=== PATIENT | male | born 1970 ===

== ENCOUNTER 2020-06-15 13:23 | Emergency (ER) | payer OTHER ==
[~2020-06-15] VITALS: Ht 167.6 cm; Wt 86.2 kg
[2020-06-15] MEDS ORDERED: Norco 5-325 Ta1 EACH PO (14:15)
[2020-06-15] MEDS ORDERED: IBUP800 PO (14:15)
== END 2020-06-15 14:18 | disposition home or self-care (01) ==
LOC: ER 13:23
DX: K40.90 Unilateral inguinal hernia, without obstruction or gangrene, not specified as recurrent (principal)
CPT/HCPCS: 99282

== ENCOUNTER 2020-06-26 12:42 | Inpatient (IN) | payer OTHER ==
[~2020-06-26] VITALS: Ht 167.6 cm; Wt 81.8 kg
[~2020-06-26 12:42] MED LIST: IBUP800 PO; Norco 5-325 Ta1 EACH PO
[2020-06-26 13:51] LABS: BASOPHILS ABSOLUTE AUTO 0.02 K/mm3 (0.00-0.23); BASOPHILS PERCENT AUTO 0 % (0-2); EOSINOPHILS ABSOLUTE AUTO 0.11 K/mm3 (0.00-0.68); EOSINOPHILS PERCENT AUTO 2 % (0-6); Hematocrit 34.6 % (37.0-53.0); Hemoglobin 11.5 g/dL (13.5-17.5); IMMATURE GRAN PERCENT AUTO 0 % (0-1); LYMPHOCYTES PERCENT AUTO 24 % (21-46); MONOCYTES ABSOLUTE AUTO 0.72 K/mm3 (0.16-1.47); MONOCYTES PERCENT AUTO 10 % (4-13); Mean Corpuscular HGB 30.6 pg (26.0-34.0); Mean Corpuscular HGB Conc 33.2 g/dL (31.5-36.5); Mean Corpuscular Volume 92 fL (80-100); Mean Platelet Volume 11.2 fL (9.1-12.4); NEUTROPHILS ABSOLUTE AUTO 4.47 K/mm3 (1.96-9.15); NEUTROPHILS PERCENT AUTO 64 % (41-73); Platelet Count 179 K/mm3 (150-400); RDW Coefficient Variation 13.6 % (11.7-14.2); Red Blood Cell Count 3.76 M/mm3 (4.30-5.90); White Blood Cell Count 7.02 K/mm3 (4.00-11.30)
[2020-06-26 14:10] LABS: Alanine Aminotransfer (ALT/SGP 23 U/L (12-78); Albumin, Blood 2.4 g/dL (3.4-5.0); Albumin/Globulin Ratio 0.5 (0.8-1.8); Alk Phos 118 U/L (50-136); Anion Gap 6 mmol/L (6-16); Aspartate Aminotrans (AST/SGOT 21 U/L (12-37); Bilirubin, Total 0.7 mg/dL (0.1-1.0); Blood Urea Nitrogen 15 mg/dL (8-24); Bun/Creatinine Ratio 25.8 (12.0-20.0); CO2, Blood 28 mmol/L (21-32); CPK Creatine Kinase 81 U/L (39-308); Calcium, Blood 7.8 mg/dL (8.5-10.1); Chloride, Blood 106 mmol/L (98-108); Creatine Kinase MB 2.4 ng/mL (0.0-3.6); Creatinine, Blood 0.58 mg/dL (0.60-1.20); Glomerular Filtration Rate >60 (60-); Glucose, Blood 113 mg/dL (70-99); Potassium, Blood 3.2 mmol/L (3.5-5.5); Sodium, Blood 140 mmol/L (136-145); Total Protein, Blood 7.4 g/dL (6.4-8.2); Troponin I <0.015 ng/mL (0.000-0.040)
[2020-06-26] MEDS ORDERED: IBUP200 PO (19:55)
[2020-06-27 05:21] LABS: BASOPHILS ABSOLUTE AUTO 0.01 K/mm3 (0.00-0.23); BASOPHILS PERCENT AUTO 0 % (0-2); EOSINOPHILS ABSOLUTE AUTO 0.12 K/mm3 (0.00-0.68); EOSINOPHILS PERCENT AUTO 4 % (0-6); Hematocrit 34.2 % (37.0-53.0); Hemoglobin 11.3 g/dL (13.5-17.5); IMMATURE GRAN ABSOLUTE AUTO 0.01 K/mm3 (0.00-0.10); IMMATURE GRAN PERCENT AUTO 0 % (0-1); LYMPHOCYTES ABSOLUTE AUTO 1.17 K/mm3 (0.84-5.20); LYMPHOCYTES PERCENT AUTO 37 % (21-46); MONOCYTES ABSOLUTE AUTO 0.36 K/mm3 (0.16-1.47); MONOCYTES PERCENT AUTO 11 % (4-13); Mean Corpuscular HGB 30.6 pg (26.0-34.0); Mean Corpuscular Volume 93 fL (80-100); Mean Platelet Volume 11.4 fL (9.1-12.4); NEUTROPHILS ABSOLUTE AUTO 1.53 K/mm3 (1.96-9.15); NEUTROPHILS PERCENT AUTO 48 % (41-73); Platelet Count 162 K/mm3 (150-400); RDW Coefficient Variation 13.7 % (11.7-14.2); RDW Standard Deviation 46.7 fL (35.1-46.3); Red Blood Cell Count 3.69 M/mm3 (4.30-5.90)
--- NOTE | 2020-06-27 05:22 | NUR ---
SHIFT SUMMARY PT NEW ED ADMIT THIS EVENING. PT LETHARGIC SINCE ADMISSION. THERE IS SOME CONCERN FOR SUBSTANCE USE. PT HAS A HX OF IV DRUG USE. PT HAS ABSCESSES SCATTERED THROUGHOUT BODY. 3 TO L GLUTEAL, 1 TO R GLUTEAL, 2 TO CLYDE/RFA, 2 TO R THIGH, 1 TO LEFT THIGH. I & D TO SEVERAL ABSCESSES DONE IN ED. SEROSANGUINOUS DRAINAGE FROM DRAINED ABSCESSES. EACH ONE DRESSED WITH ABD PAD. PICUTRES TAKEN AND PLACED IN CHART. PT HAS DENIED ANY PAIN. SLEPT THROUGH MUCH OF THE NIGHT. VITAL SIGNS STABLE. WILL CONTINUE TO MONITOR AND REPORT TO DAY RN.
[2020-06-27 05:54] LABS: Alanine Aminotransfer (ALT/SGP 18 U/L (12-78); Albumin/Globulin Ratio 0.5 (0.8-1.8); Alk Phos 97 U/L (50-136); Anion Gap 6 mmol/L (6-16); Aspartate Aminotrans (AST/SGOT 23 U/L (12-37); Bilirubin, Total 0.5 mg/dL (0.1-1.0); Blood Urea Nitrogen 15 mg/dL (8-24); Bun/Creatinine Ratio 25.6 (12.0-20.0); CO2, Blood 28 mmol/L (21-32); Calcium, Blood 7.5 mg/dL (8.5-10.1); Chloride, Blood 107 mmol/L (98-108); Creatinine, Blood 0.59 mg/dL (0.60-1.20); Globulin, Blood 4.4 g/dL (2.2-4.0); Glomerular Filtration Rate >60 (60-); Glucose, Blood 104 mg/dL (70-99); Potassium, Blood 3.8 mmol/L (3.5-5.5); Sodium, Blood 141 mmol/L (136-145); Total Protein, Blood 6.4 g/dL (6.4-8.2)
--- NOTE | 2020-06-27 19:34 | NUR ---
SHIFT SUMMARY: NO ACUTE CHANGES TO REPORT THIS SHIFT. PT A&O; CALM AND COOPERATIVE WITH CARE; INDEPENDENT IN ROOM. MEDICATED FOR PAIN PER EMAR. MULTIPLE ABSCESSES; SEE PICS IN CHART; DRESSINGS C/D/I. HEP C+; AWAITING BLOODWORK TO DETERMINE IF PATIENT IS HIV+ -PATIENT DENIES. REPORT GIVEN TO ONCOMING RN.
--- NOTE | 2020-06-28 06:14 | NUR ---
SHIFT SUMMARY AOX4. VSS. LEFT ROOM FOR ROUGHLY 1.5 HRS LAST NIGHT, WHEN ASKED HE STATED HE WAS "WATCHING TV" DOWNSTAIRS & WENT OUT TO SMOKE. INFORMED PT ON THE POLICY FOR NOT LEAVING THE FLOOR FOR LONGER THEN 1 HR. HELPED PT CLEAN & CHANGE ALL DRESSINGS ON ABCESSES. THEY HAD A MODERATE AMOUNT SEROSANGUINOUS DRAINAGE. REPORTED 7/10 PAIN 1X IN BUTTOCKS WHERE ABCESSSES ARE LOCATED & GROIN WHERE HE HAS A SCROTAL HERNIA, MEDICATED c NORCO PER ORDERS-STATED RELIEF. DENIES NAUSEA & DYSPNEA. CALL LIGHT IN REACH. WCTM.
[2020-06-28 06:17] LABS: BASOPHILS ABSOLUTE AUTO 0.02 K/mm3 (0.00-0.23); BASOPHILS PERCENT AUTO 1 % (0-2); EOSINOPHILS ABSOLUTE AUTO 0.15 K/mm3 (0.00-0.68); EOSINOPHILS PERCENT AUTO 5 % (0-6); Hematocrit 34.8 % (37.0-53.0); Hemoglobin 11.4 g/dL (13.5-17.5); IMMATURE GRAN ABSOLUTE AUTO 0.01 K/mm3 (0.00-0.10); IMMATURE GRAN PERCENT AUTO 0 % (0-1); LYMPHOCYTES ABSOLUTE AUTO 1.43 K/mm3 (0.84-5.20); LYMPHOCYTES PERCENT AUTO 45 % (21-46); MONOCYTES PERCENT AUTO 13 % (4-13); Mean Corpuscular HGB 30.6 pg (26.0-34.0); Mean Corpuscular HGB Conc 32.8 g/dL (31.5-36.5); Mean Corpuscular Volume 93 fL (80-100); Mean Platelet Volume 11.2 fL (9.1-12.4); NEUTROPHILS ABSOLUTE AUTO 1.14 K/mm3 (1.96-9.15); NEUTROPHILS PERCENT AUTO 36 % (41-73); Platelet Count 186 K/mm3 (150-400); RDW Coefficient Variation 13.7 % (11.7-14.2); RDW Standard Deviation 46.8 fL (35.1-46.3); Red Blood Cell Count 3.73 M/mm3 (4.30-5.90); White Blood Cell Count 3.15 K/mm3 (4.00-11.30)
[2020-06-28 06:38] LABS: Anion Gap 4 mmol/L (6-16); Blood Urea Nitrogen 14 mg/dL (8-24); Bun/Creatinine Ratio 24.1 (12.0-20.0); CO2, Blood 28 mmol/L (21-32); Calcium, Blood 7.9 mg/dL (8.5-10.1); Chloride, Blood 109 mmol/L (98-108); Creatinine, Blood 0.58 mg/dL (0.60-1.20); Glomerular Filtration Rate >60 (60-); Glucose, Blood 117 mg/dL (70-99); Potassium, Blood 3.9 mmol/L (3.5-5.5); Sodium, Blood 141 mmol/L (136-145)
[2020-06-28 13:09] LABS: % CD 4 POS. LYMPH. 49.5 % (30.8-58.5); ABSOLUTE CD 4 HELPER 693 /uL (359-1519); BASOS 0 % (Not Estab.); EOS 2 % (Not Estab.); EOS (ABSOLUTE) 0.1 x10E3/uL (0.0-0.4); HEMATOCRIT 33.5 % (37.5-51.0); HEMOGLOBIN 11.2 g/dL (13.0-17.7); IMMATURE GRANULOCYTES 0 % (Not Estab.); LYMPHS 25 % (Not Estab.); LYMPHS (ABSOLUTE) 1.4 x10E3/uL (0.7-3.1); MCH 30.9 pg (26.6-33.0); MCHC 33.4 g/dL (31.5-35.7); MCV 93 fL (79-97); MONOCYTES 9 % (Not Estab.); MONOCYTES(ABSOLUTE) 0.5 x10E3/uL (0.1-0.9); NEUTROPHILS 64 % (Not Estab.); NEUTROPHILS (ABSOLUTE) 3.6 x10E3/uL (1.4-7.0); PLATELETS 159 x10E3/uL (150-450); RBC 3.62 x10E6/uL (4.14-5.80); RDW 13.4 % (11.6-15.4); WBC 5.6 x10E3/uL (3.4-10.8)
--- NOTE | 2020-06-28 20:03 | NUR ---
SHIFT SUMMARY: NO ACUTE CHANGES TO REPORT THIS SHIFT. PT A&O; SLEEPING T/O SHIFT; COOPERATIVE WITH CARE. MEDICATED FOR GROIN PAIN PER EMAR. PT PLACED IN CONTACT ISO R/T MRSA IN WOUNDS. ABX CONTINUING. POSSIBLE D/C HOME 06/29. REPORT GIVEN TO ONCOMING RN.
--- NOTE | 2020-06-29 07:49 | NUR ---
SHIFT SUMMARY AOX4. VSS. DENIES N/V OR DYSPNEA. REPORTED 6/10 PAIN IN HIPS/GROIN, MEDICATED 2X c NORCO PER ORDERS. HAS SLEPT WELL T/O NIGHT. PT DENIES USING HEROIN SINCE BEING IN HOSPITAL, STATES THE LAST DAY HE USED WAS 06/26/20. REPORTS "CHILLS" BUT WAS AFEBRILE. BEING TX c IV ANTIBIOTICS FOR MULTIPLE ABCESSES. CALL LIGHT IN REACH.
[2020-06-29 15:11] LABS: FINAL INTERPRETATION Negative (.); HIV 1 AB Negative (Negative); HIV 2 AB Negative (Negative)
[2020-06-29 16:11] LABS: HIV-1 RNA BY PCR <20 (.)
--- NOTE | 2020-06-29 17:00 | NUR ---
SHIFT SUMMARY PT A/O X4 AND PLEASANT. HE IS IND IN THE ROOM. PT HAS MULTIPLE ABSCESSES ON HIS BODY AND A SCROTAL HERNIA. WOUND PICTURES IN THE CHART. MEDICATED ONCE WITH NORCO FOR PAIN WITH GOOD EFFECT. HAS HAD TWO DOSES OF VANCO THIS SHIFT. VSS.
--- NOTE | 2020-06-29 18:49 | NUR ---
BROWN RESIDUE IN IV.
--- NOTE | 2020-06-30 05:59 | NUR ---
SHIFT SUMMARY: VSS. 99.3. MED FOR PAIN X 2. PT STATES HELPS. IV ABT INFUSED PER ORDERS. DRESSING CHANGED TO L BUTTOCKS ABSCESSES DUE TO DRAINAGE- SMALL AMT OF YELLOW/GREEN DISCHARGE FROM 3 SMALL SITES. ALANIS WOUND ERYTHEMA. DRESSING TO INNER THIGHS, R ARM, AND R BUTTOCK C/D/I. NO ACUTE CONCERNS AT THIS TIME. WILL CONT TO MONITOR.
[2020-06-30 07:25] LABS: BASOPHILS ABSOLUTE AUTO 0.02 K/mm3 (0.00-0.23); BASOPHILS PERCENT AUTO 1 % (0-2); EOSINOPHILS ABSOLUTE AUTO 0.11 K/mm3 (0.00-0.68); EOSINOPHILS PERCENT AUTO 3 % (0-6); Hematocrit 41.3 % (37.0-53.0); Hemoglobin 13.7 g/dL (13.5-17.5); IMMATURE GRAN ABSOLUTE AUTO 0.01 K/mm3 (0.00-0.10); IMMATURE GRAN PERCENT AUTO 0 % (0-1); LYMPHOCYTES ABSOLUTE AUTO 1.13 K/mm3 (0.84-5.20); LYMPHOCYTES PERCENT AUTO 35 % (21-46); MONOCYTES ABSOLUTE AUTO 0.31 K/mm3 (0.16-1.47); MONOCYTES PERCENT AUTO 10 % (4-13); Mean Corpuscular HGB Conc 33.2 g/dL (31.5-36.5); Mean Corpuscular Volume 93 fL (80-100); Mean Platelet Volume 10.6 fL (9.1-12.4); NEUTROPHILS ABSOLUTE AUTO 1.63 K/mm3 (1.96-9.15); NEUTROPHILS PERCENT AUTO 51 % (41-73); Platelet Count 225 K/mm3 (150-400); RDW Coefficient Variation 13.6 % (11.7-14.2); RDW Standard Deviation 46.8 fL (35.1-46.3); Red Blood Cell Count 4.42 M/mm3 (4.30-5.90); White Blood Cell Count 3.21 K/mm3 (4.00-11.30)
[2020-06-30 07:47] LABS: Alanine Aminotransfer (ALT/SGP 32 U/L (12-78); Albumin, Blood 2.5 g/dL (3.4-5.0); Albumin/Globulin Ratio 0.4 (0.8-1.8); Alk Phos 126 U/L (50-136); Anion Gap 5 mmol/L (6-16); Aspartate Aminotrans (AST/SGOT 31 U/L (12-37); Bilirubin, Total 0.4 mg/dL (0.1-1.0); Blood Urea Nitrogen 11 mg/dL (8-24); Bun/Creatinine Ratio 18.7 (12.0-20.0); CO2, Blood 29 mmol/L (21-32); Calcium, Blood 8.6 mg/dL (8.5-10.1); Chloride, Blood 109 mmol/L (98-108); Creatinine, Blood 0.59 mg/dL (0.60-1.20); Globulin, Blood 5.8 g/dL (2.2-4.0); Glomerular Filtration Rate >60 (60-); Glucose, Blood 122 mg/dL (70-99); Percent Saturation 27.5 % (20.0-50.0); Potassium, Blood 3.4 mmol/L (3.5-5.5); Sodium, Blood 143 mmol/L (136-145); Total Protein, Blood 8.3 g/dL (6.4-8.2)
--- NOTE | 2020-06-30 11:05 | NUR ---
WITHDRAWAL SYMPTOMS/PAIN PT BEGAN TO EXPERIENCE SEVERE WITHDRAWAL SYMPTOMS THIS AM. MEDICATED PER EMR FOR PAIN WITH NO EFFECT SO I PLACED A CALL TO DR. PIMENTEL. SHE ORDERED 5 MG MORPHINE IV FOR THE PATIENT. SO FAR THE MORPHINE IS WORKING WELL FOR PAIN/WITHDRAWAL MANAGEMENT.
[2020-06-30 15:56] LABS: Vancomycin, Trough 13.3 ug/mL (5.0-10.0)
--- NOTE | 2020-06-30 17:00 | NUR ---
SHIFT SUMMARY PT A/O X4 AND IND IN THE ROOM. THIS A.M. PT C/O INCREASED PAIN AND WITHDRAWAL SYMPTOMS. MEDICATED W/NO EFFECT. A CALL WAS PLACED TO THE PHYSICIAN AND IV MORPHINE Q4 WAS ORDERED. THE MORPHINE HAS HELPED THE PT GREATLY. ADAPT IS TO SEE THE PT TOMORROW BETWEEN 0900 AND 1000. THE PLAN IS TO GET THE PT INTO A [facility] UPON DISCHARGE. BESIDES THE PAIN; THE PT HAS BEEN PLEASANT AND COOPERATIVE WITH CARE. KOLBY. SYED.
--- NOTE | 2020-07-01 04:30 | NUR ---
SHIFT SUMMARY: VSS. AFEB. AFEB. AAOX4. ABLE TO MAKE NEEDS KNOWN. REPORTING PAIN CONSISTENTLY 10/10, ALTHOUGH FALLING ASLEEP BETWEEN MED DOSES. PT GETTING MORPHINE, TORADOL, TYLENOL, AND NORCO ALL ON ROTATION FOR PAIN MANAGEMENT. DEMONSTRATING WITHDRAWAL SYMPTOMS OF FULL BODY ACHES, CHILLS, COLD SWEATS. TEARFUL INTERMITTENTLY. POSITIVE ABOUT MOVING FORWARD W/ ADAPT AND WITHDRAWING OFF OF HEROIN. DRESSINGS CHANGED TO DRAINING ABSCESSES ON B BUTTOCKS, MEDIAL R THIGH, R UPPER ARM. ALL DRAINING SMALL AMTS OF SERO/SANG/GREENISH DISCHARGE. ALL CONT W/PERIWOUND ERYTHEMA. IV ABT INFUSED ORDERED. WILL CONT TO MONITOR.
[2020-07-01 05:24] LABS: BASOPHILS ABSOLUTE AUTO 0.02 K/mm3 (0.00-0.23); BASOPHILS PERCENT AUTO 0 % (0-2); EOSINOPHILS ABSOLUTE AUTO 0.17 K/mm3 (0.00-0.68); EOSINOPHILS PERCENT AUTO 4 % (0-6); Hemoglobin 12.6 g/dL (13.5-17.5); IMMATURE GRAN ABSOLUTE AUTO 0.01 K/mm3 (0.00-0.10); IMMATURE GRAN PERCENT AUTO 0 % (0-1); LYMPHOCYTES ABSOLUTE AUTO 1.79 K/mm3 (0.84-5.20); LYMPHOCYTES PERCENT AUTO 38 % (21-46); MONOCYTES ABSOLUTE AUTO 0.42 K/mm3 (0.16-1.47); MONOCYTES PERCENT AUTO 9 % (4-13); Mean Corpuscular HGB 30.4 pg (26.0-34.0); Mean Corpuscular HGB Conc 33.2 g/dL (31.5-36.5); Mean Corpuscular Volume 92 fL (80-100); Mean Platelet Volume 10.7 fL (9.1-12.4); NEUTROPHILS ABSOLUTE AUTO 2.28 K/mm3 (1.96-9.15); NEUTROPHILS PERCENT AUTO 49 % (41-73); Platelet Count 214 K/mm3 (150-400); RDW Coefficient Variation 13.7 % (11.7-14.2); RDW Standard Deviation 46.3 fL (35.1-46.3); Red Blood Cell Count 4.14 M/mm3 (4.30-5.90); White Blood Cell Count 4.69 K/mm3 (4.00-11.30)
[2020-07-01 05:43] LABS: Alanine Aminotransfer (ALT/SGP 24 U/L (12-78); Albumin, Blood 2.2 g/dL (3.4-5.0); Albumin/Globulin Ratio 0.4 (0.8-1.8); Alk Phos 110 U/L (50-136); Anion Gap 6 mmol/L (6-16); Aspartate Aminotrans (AST/SGOT 27 U/L (12-37); Bilirubin, Total 0.4 mg/dL (0.1-1.0); Blood Urea Nitrogen 13 mg/dL (8-24); CO2, Blood 27 mmol/L (21-32); Calcium, Blood 7.9 mg/dL (8.5-10.1); Chloride, Blood 109 mmol/L (98-108); Creatinine, Blood 0.65 mg/dL (0.60-1.20); Globulin, Blood 5.2 g/dL (2.2-4.0); Glomerular Filtration Rate >60 (60-); Glucose, Blood 100 mg/dL (70-99); Potassium, Blood 3.6 mmol/L (3.5-5.5); Sodium, Blood 142 mmol/L (136-145); Total Protein, Blood 7.4 g/dL (6.4-8.2)
[2020-07-01] MEDS ORDERED: Norco 10-325 T1 EACH PO (13:56)
[2020-07-01] MEDS ORDERED: CLIN300 PO (13:57)
--- NOTE | 2020-07-01 14:50 | NUR ---
PATIENT DISCHARGED AT 1422
== END 2020-07-01 14:21 | disposition home or self-care (01) | DRG 603 ==
LOC: ER 12:42 → MEDS 15:41 → ENPENDDIS 07-01 13:38 → MEDS 07-01 14:21
PROVIDERS: Emergency Medicine; ADMIT Internal Medicine
PROC: 0H98XZZ Drainage of Buttock Skin, External Approach (ICD-10-PCS; principal; 2020-06-26)
PROC: 0H9BXZZ Drainage of Right Upper Arm Skin, External Approach (ICD-10-PCS; 2020-06-26)
PROC: 0H9DXZZ Drainage of Right Lower Arm Skin, External Approach (ICD-10-PCS; 2020-06-26)
DX: L03.114 Cellulitis of left upper limb (principal); L03.116 Cellulitis of left lower limb; L03.115 Cellulitis of right lower limb; L02.31 Cutaneous abscess of buttock; L03.113 Cellulitis of right upper limb; B96.1 Klebsiella pneumoniae [K. pneumoniae] as the cause of diseases classified elsewhere; B95.62 Methicillin resistant Staphylococcus aureus infection as the cause of diseases classified elsewhere; L02.413 Cutaneous abscess of right upper limb; K40.90 Unilateral inguinal hernia, without obstruction or gangrene, not specified as recurrent; D64.9 Anemia, unspecified; E87.6 Hypokalemia; F17.200 Nicotine dependence, unspecified, uncomplicated; B19.20 Unspecified viral hepatitis C without hepatic coma; F11.10 Opioid abuse, uncomplicated
CPT/HCPCS: 10061; 36415; 80048; 80053; 80202; 82550; 82553; 82728; 83540; 83550; 83605; 83735; 84484; 85025; 86361; 86701; 86702; 87040; 87070; 87075; 87077; 87147; 87186; 87205; 87536; 93005; 93010; 96365-59; 96366-59; 96367-59; 96375-59; 99285-25; A9270; A9270-GY; J0696; J1650; J1885; J2270; J3370; J7050

== ENCOUNTER 2020-10-22 20:31 | Inpatient (IN) | payer OTHER ==
[~2020-10-22] VITALS: Ht 167.6 cm; Wt 72.0 kg
[~2020-10-22 20:31] MED LIST changes: +CLIN300 PO; +IBUP200 PO; +Norco 10-325 T1 EACH PO
[2020-10-22 20:51] LABS: BASOPHILS ABSOLUTE AUTO 0.02 K/mm3 (0.00-0.23); BASOPHILS PERCENT AUTO 0 % (0-2); EOSINOPHILS ABSOLUTE AUTO 0.01 K/mm3 (0.00-0.68); EOSINOPHILS PERCENT AUTO 0 % (0-6); Hematocrit 38.3 % (37.0-53.0); IMMATURE GRAN ABSOLUTE AUTO 0.07 K/mm3 (0.00-0.10); IMMATURE GRAN PERCENT AUTO 1 % (0-1); LYMPHOCYTES ABSOLUTE AUTO 1.69 K/mm3 (0.84-5.20); LYMPHOCYTES PERCENT AUTO 14 % (21-46); MONOCYTES ABSOLUTE AUTO 0.76 K/mm3 (0.16-1.47); MONOCYTES PERCENT AUTO 6 % (4-13); Mean Corpuscular HGB 29.8 pg (26.0-34.0); Mean Corpuscular HGB Conc 33.9 g/dL (31.5-36.5); Mean Corpuscular Volume 88 fL (80-100); Mean Platelet Volume 10.4 fL (9.1-12.4); NEUTROPHILS ABSOLUTE AUTO 9.72 K/mm3 (1.96-9.15); NEUTROPHILS PERCENT AUTO 79 % (41-73); Platelet Count 194 K/mm3 (150-400); RDW Coefficient Variation 13.1 % (11.7-14.2); RDW Standard Deviation 41.7 fL (35.1-46.3); Red Blood Cell Count 4.36 M/mm3 (4.30-5.90); White Blood Cell Count 12.27 K/mm3 (4.00-11.30)
[2020-10-22 21:09] LABS: Alanine Aminotransfer (ALT/SGP 31 U/L (12-78); Albumin, Blood 2.5 g/dL (3.4-5.0); Albumin/Globulin Ratio 0.4 (0.8-1.8); Alk Phos 102 U/L (50-136); Anion Gap 6 mmol/L (6-16); Aspartate Aminotrans (AST/SGOT 23 U/L (12-37); Bilirubin, Total 0.9 mg/dL (0.1-1.0); Blood Urea Nitrogen 10 mg/dL (8-24); Bun/Creatinine Ratio 16.2 (12.0-20.0); CO2, Blood 27 mmol/L (21-32); Calcium, Blood 7.7 mg/dL (8.5-10.1); Chloride, Blood 104 mmol/L (98-108); Creatinine, Blood 0.62 mg/dL (0.60-1.20); Glomerular Filtration Rate >60 (60-); Glucose, Blood 148 mg/dL (70-99); Potassium, Blood 3.3 mmol/L (3.5-5.5); Sodium, Blood 137 mmol/L (136-145); Total Protein, Blood 8.5 g/dL (6.4-8.2)
[2020-10-22 22:10] LABS: Source, Urine Clean Catch
[2020-10-22 22:12] LABS: Appearance, Urine Hazy (Clear); Bilirubin, Urine Neg (Neg); Blood, Urine 4+ (Neg); Color, Urine Yellow (P-Yellow); Glucose Qualitative, Urine Neg (Neg); Ketones, Urine Neg (Neg); Leukocyte Esterase, Urine 3+ (Neg); Nitrite, Urine Pos (Neg); Protein, Urine 2+ (Neg); Urobilinogen, Urine 2+ (Normal)
[2020-10-22 22:20] LABS: White Blood Cells, Urine TNTC /hpf (0-5)
[2020-10-22 22:21] LABS: Bacteria Many /hpf; Squamous Epithelial Cells Not Seen /hpf (Few)
[2020-10-22] MEDS ORDERED: CEFP200 PO (23:05)
[2020-10-23 02:01] LABS: U Amphetamine Screen DETECTED; U Barbituate Screen Not Detected; U Benzodiazapine Screen Not Detected; U Buprenorphine Screen Not Detected; U Cannabinoids Screen Not Detected; U Cocaine Screen Not Detected; U Methadone Screen Not Detected; U Methamphetamine Screen DETECTED; U Opiates Screen DETECTED; U Oxycodone Screen Not Detected; U Phencyclidine Screen Not Detected; U Propoxyphene Screen Not Detected
--- NOTE | 2020-10-23 05:51 | NUR ---
SHIFT SUMMARY PT ARRIVED FROM ED DURING SHIFT. PT ALERT AND ORIENTED TO SELF AND TOWN. UNSURE OF HOSPITAL, YEAR AND SITUATION. PT REPORTS TO BE HOMELESS AND WOULD LIKE TO GO TO [facility] AFTER DISCHARGE TO ASSIST IN WITHDRAWAL FROM HEROIN. PT REPORTS SEVERE GENERALIZED PAIN /. MEDICATION GIVEN PER EMAR. PT REPORTS RELIEF. HR STABLE. BP STABLE. OXYGEN SATURATION MAINTAINED ABOVE 92% ON RA. PT ABLE TO USE URINAL NEEDED. BED ALARM IN PLACE FOR SAFETY. TEMPERATURE INCREASED TO 103 DEGREES, TYLENOL GIVEN. TEMPERATURE LOWERED TO 98.7. WILL CONTINUE TO MONITOR UNTIL REPORT GIVEN TO DELICIA VIRK.
[2020-10-23 08:30] LABS: BASOPHILS ABSOLUTE AUTO 0.04 K/mm3 (0.00-0.23); BASOPHILS PERCENT AUTO 0 % (0-2); EOSINOPHILS PERCENT AUTO 0 % (0-6); Hematocrit 40.2 % (37.0-53.0); Hemoglobin 13.6 g/dL (13.5-17.5); IMMATURE GRAN PERCENT AUTO 1 % (0-1); LYMPHOCYTES ABSOLUTE AUTO 1.83 K/mm3 (0.84-5.20); LYMPHOCYTES PERCENT AUTO 11 % (21-46); MONOCYTES ABSOLUTE AUTO 1.17 K/mm3 (0.16-1.47); MONOCYTES PERCENT AUTO 7 % (4-13); Mean Corpuscular HGB 30.3 pg (26.0-34.0); Mean Corpuscular HGB Conc 33.8 g/dL (31.5-36.5); Mean Corpuscular Volume 90 fL (80-100); Mean Platelet Volume 10.6 fL (9.1-12.4); NEUTROPHILS ABSOLUTE AUTO 13.47 K/mm3 (1.96-9.15); NEUTROPHILS PERCENT AUTO 81 % (41-73); Platelet Count 166 K/mm3 (150-400); RDW Coefficient Variation 13.4 % (11.7-14.2); RDW Standard Deviation 44.1 fL (35.1-46.3); Red Blood Cell Count 4.49 M/mm3 (4.30-5.90); White Blood Cell Count 16.61 K/mm3 (4.00-11.30)
[2020-10-23 08:48] LABS: Alanine Aminotransfer (ALT/SGP 27 U/L (12-78); Albumin, Blood 2.6 g/dL (3.4-5.0); Albumin/Globulin Ratio 0.5 (0.8-1.8); Alk Phos 93 U/L (50-136); Anion Gap 6 mmol/L (6-16); Aspartate Aminotrans (AST/SGOT 20 U/L (12-37); Bilirubin, Total 1.5 mg/dL (0.1-1.0); Blood Urea Nitrogen 10 mg/dL (8-24); Bun/Creatinine Ratio 15.2 (12.0-20.0); CO2, Blood 26 mmol/L (21-32); Calcium, Blood 7.9 mg/dL (8.5-10.1); Chloride, Blood 107 mmol/L (98-108); Creatinine, Blood 0.66 mg/dL (0.60-1.20); Globulin, Blood 5.4 g/dL (2.2-4.0); Glomerular Filtration Rate >60 (60-); Glucose, Blood 112 mg/dL (70-99); Potassium, Blood 3.8 mmol/L (3.5-5.5); Sodium, Blood 139 mmol/L (136-145)
--- NOTE | 2020-10-23 16:30 | NUR ---
PT REQUESTED TO GET UP AND WALK TO THE BATHROOM. PT ALERT AND ORIENTED AT THIS TIME. DIRECTOR OF SOCIAL SERVICES ASSISTING TO THE BATHRROM WITH FWW AND GAIT BELT FOR SAFETY. WILL CTM.
--- NOTE | 2020-10-23 17:22 | NUR ---
CALLED DR GUY- PT TEMP IS UP STILL PT SEEMS TO BE HAVING QUITE A BIT OF PAIN IN THE LOW ABDOMEN. PT STATED HE IS HOT BECAUSE HE IS STARTING TO WITHDRAWL. PT WAS POSSITIVE FOR MORE THAN ONE SUBSTANCE ON ARRIVAL TO THE HOSPITAL. RECIEVED ORDER TO DC NORCO AND SWITCH TO OXY, WITH THE PT RECIEVING TYLENOL FOR FEVERS WELL.
--- NOTE | 2020-10-23 18:04 | NUR ---
SHIFT SUMMARY- PT ALERT AND ORIENTED, ASKED STAFF TO CALL HIS MOTHER, NUMBER IS NOW ON THE BOARD IN THE PT ROOM. CALLED PT MOTHER AND PROVIDED HER WITH THE PT ROOM NUMBER AND SHE CALLED TO SPEAK WITH HIM. THE PT HAS BEEN RUNNING HOT EVEN THOUGH HE FEELS A LITTLE COLD. HE IS IN THE ROOM UNDER A SHEET ONLY. PT GOT UP TO GO TO THE BATHROOM TONIGHT HE STATED THIS EVENING THAT "IT POPPED BACK OUT" WHEN QUESTIONED PT INDICATED HIS HERNIA, HOWEVER HE STATED "HE PUT IT BACK IN." PT WAS HAVING SOME PAIN, MEDICATED PRN. CALLED DR AT THAT TIME SEE NOTE FOR DETAILS ON PAIN MED CHANGES. PT CURRENTLY IN BED, CALL LIGHT IN REACH PT CALLS APPROPRIATELY. NO S&S OF DISTRESS. WILL CTM
--- NOTE | 2020-10-24 00:27 | NUR ---
FEVER UPON CHECKING PT HE APPEARED DIAPHORETIC AND TACHYPENIC, ORAL TEMP SHOWED TEMP OF 102, TYLENOL AND PAIN MEDICATION WAS GIVEN. CHARGE NURSES NOTIFIED, WILL REASSESS PT. BP AND O2 SAT ARE WNL AND STABLE. WCTM.
--- NOTE | 2020-10-24 04:27 | NUR ---
COMPANY DOCTOR SUMMARY PT BEGAN THE SHIFT APPEARING AWAKE AND ALERT HE WAS EATING DINNER, AFTER EATING HE FELL ASLEEP AND REMAINED SLIGHTLY OBTUNDED FOR MOST OF THE SHIFT. PT SPIKED A FEVER OF 102 AROUND MIDNIGHT AND WAS GIVEN TYLENOL AND COOL CLOTH ON HIS HEAD WHICH BROUGHT HIS TEMP DOWN TO 99.9, TEMP IS CURRENTLY 98.6. PT CONTINUES TO HAVE REALLY GOOD URINE OUTPUT HE USES URINAL IN THE BED. PT'S SCROTUM IS SWOLLEN AND HE STATES HIS HERNIA CAUSES HIM PAIN W AMBULATION. PT IS CONFUSED AT TIMES AND REQUESTS FOOD WHENEVER AWAKE, BED ALARM ON. WCTM.
[2020-10-24 04:53] LABS: BASOPHILS ABSOLUTE AUTO 0.03 K/mm3 (0.00-0.23); BASOPHILS PERCENT AUTO 0 % (0-2); EOSINOPHILS ABSOLUTE AUTO 0.02 K/mm3 (0.00-0.68); EOSINOPHILS PERCENT AUTO 0 % (0-6); IMMATURE GRAN ABSOLUTE AUTO 0.05 K/mm3 (0.00-0.10); IMMATURE GRAN PERCENT AUTO 0 % (0-1); LYMPHOCYTES ABSOLUTE AUTO 2.39 K/mm3 (0.84-5.20); LYMPHOCYTES PERCENT AUTO 17 % (21-46); MONOCYTES ABSOLUTE AUTO 1.35 K/mm3 (0.16-1.47); MONOCYTES PERCENT AUTO 10 % (4-13); Mean Corpuscular HGB 30.6 pg (26.0-34.0); Mean Corpuscular HGB Conc 34.1 g/dL (31.5-36.5); Mean Corpuscular Volume 90 fL (80-100); Mean Platelet Volume 10.8 fL (9.1-12.4); NEUTROPHILS ABSOLUTE AUTO 10.07 K/mm3 (1.96-9.15); NEUTROPHILS PERCENT AUTO 72 % (41-73); Platelet Count 149 K/mm3 (150-400); RDW Coefficient Variation 13.4 % (11.7-14.2); RDW Standard Deviation 43.8 fL (35.1-46.3); Red Blood Cell Count 4.58 M/mm3 (4.30-5.90); White Blood Cell Count 13.91 K/mm3 (4.00-11.30)
[2020-10-24 05:15] LABS: Anion Gap 6 mmol/L (6-16); Blood Urea Nitrogen 11 mg/dL (8-24); Bun/Creatinine Ratio 16.7 (12.0-20.0); CO2, Blood 26 mmol/L (21-32); Calcium, Blood 7.8 mg/dL (8.5-10.1); Chloride, Blood 106 mmol/L (98-108); Creatinine, Blood 0.66 mg/dL (0.60-1.20); Glomerular Filtration Rate >60 (60-); Glucose, Blood 137 mg/dL (70-99); Potassium, Blood 3.6 mmol/L (3.5-5.5); Sodium, Blood 138 mmol/L (136-145)
--- NOTE | 2020-10-24 16:32 | NUR ---
Shift Summary A/Ox4, pleasant and cooperative with care. Awake most of the day, ambulatory to the bathroom for a bowel movement x 1 SBA c FWW. Patient verbalizes concern with hernia bulging out everytime he bears down. Requests frequent snacks throughout the day. Able to make needs known. So far, medicated x 1 for hernia pain with good relief. Denies nausea, vomiting, diarrhea. Low grade temps 99.3-99.4, otherwise, VSS. RA. Call light nearby. Will report to oncoming RN.
--- NOTE | 2020-10-25 04:49 | NUR ---
SOLDER MAKING LABORER SUMMARY PT HAD GOTTEN UP AND AMBULATED TO THE BATHROOM ON WHICH EXACERBATED HIS HERNIA CAUSING HIM SEVERE PAIN, SCROTUM IS SIGNIFICANTLY MORE SWOLLEN THAN PREVIOUS NIGHT. PT HAD A LOW GRADE FEVER AT THE START OF THE SHIFT OF 101.2 TYLENOL WAS GIVEN WHICH BROUGHT TEMP DOWN TO 98.5. PT CONTINUES TO HAVE GOOD URINE OUTPUT AND REQUESTS FOOD THROUGHOUT THE NIGHT. BP IS WNL AND STABLE NO SEVERE WITHDRAWL SYMPTOMS NOTED THIS SHIFT. PT IS LESS LETHARGIC THAN PREVIOUS NIGHT. WCTM.
--- NOTE | 2020-10-25 06:50 | NUR ---
Pt gave verbal consent to provide care from my shift from [phone] on 10/25/2020.
[2020-10-25 08:18] LABS: BASOPHILS ABSOLUTE AUTO 0.02 K/mm3 (0.00-0.23); BASOPHILS PERCENT AUTO 0 % (0-2); EOSINOPHILS ABSOLUTE AUTO 0.03 K/mm3 (0.00-0.68); EOSINOPHILS PERCENT AUTO 0 % (0-6); Hematocrit 39.2 % (37.0-53.0); Hemoglobin 13.3 g/dL (13.5-17.5); IMMATURE GRAN ABSOLUTE AUTO 0.02 K/mm3 (0.00-0.10); IMMATURE GRAN PERCENT AUTO 0 % (0-1); LYMPHOCYTES ABSOLUTE AUTO 1.61 K/mm3 (0.84-5.20); LYMPHOCYTES PERCENT AUTO 19 % (21-46); MONOCYTES ABSOLUTE AUTO 0.79 K/mm3 (0.16-1.47); MONOCYTES PERCENT AUTO 9 % (4-13); Mean Corpuscular HGB 30.2 pg (26.0-34.0); Mean Corpuscular HGB Conc 33.9 g/dL (31.5-36.5); Mean Corpuscular Volume 89 fL (80-100); Mean Platelet Volume 10.9 fL (9.1-12.4); NEUTROPHILS ABSOLUTE AUTO 6.18 K/mm3 (1.96-9.15); NEUTROPHILS PERCENT AUTO 72 % (41-73); Platelet Count 154 K/mm3 (150-400); RDW Coefficient Variation 13.4 % (11.7-14.2); White Blood Cell Count 8.65 K/mm3 (4.00-11.30)
[2020-10-25 08:42] LABS: Anion Gap 5 mmol/L (6-16); Blood Urea Nitrogen 11 mg/dL (8-24); Bun/Creatinine Ratio 18.9 (12.0-20.0); CO2, Blood 26 mmol/L (21-32); Calcium, Blood 7.9 mg/dL (8.5-10.1); Chloride, Blood 103 mmol/L (98-108); Creatinine, Blood 0.58 mg/dL (0.60-1.20); Glomerular Filtration Rate >60 (60-); Glucose, Blood 104 mg/dL (70-99); Potassium, Blood 3.8 mmol/L (3.5-5.5); Sodium, Blood 134 mmol/L (136-145)
--- NOTE | 2020-10-25 16:20 | NUR ---
Clarifying orders Patient had two orders with different doses of Semglee. Unsure what patient is taking IV Solumedrol for considering patient does not have COPD exacerbation and not in any respiratory distress currently, on RA with respirations equal/unlabored. Discussed with Dr. Alvarez and received T.O. to d/c IV Solumedrol without tapering and d/c Semglee 20u. Orders updated.
--- NOTE | 2020-10-25 16:23 | NUR ---
Patient concern Discussed with Dr. Alvarez patient concern of not taking prescribed Keflex for UTI-sepsis 500 mg qid since being admitted to hospital. Received T.O. for clean catch urinalysis culture if indicated.
--- NOTE | 2020-10-25 18:02 | NUR ---
Shift Summary A/Ox4, up to bathroom x 2 for bowel movements. Patient reports formed/soft stools. Also, complains of hernia exacerbation when up to bathroom requesting staff to use gait belt to prevent extreme bulging of hernia. SBA. Calls appropriately. Medicated for pain x 2 per EMAR with good effect. Tele: ST [id number]. Afebrile this shift, VSS. Appetite is great. Will cont. to monitor.
--- NOTE | 2020-10-25 19:29 | NUR ---
AWAKE, SMILING. ON TELEPHONE. DENIED PAIN, LOSS OF FEELING. CALL LIGHT IN REACH
--- NOTE | 2020-10-26 04:35 | NUR ---
SHIFT SUMMARY REQUESTED AND RECEIVED ANALGESIC AT HS FOR GROIN/ABD PAIN. HAS BEEN RESTING QUIETLY WITH EFW INTERRUPTIONS SINCE. CALL LIGHT IN REACH. ISOLATION PRECAUTIONS MAINTAINED.
[2020-10-26 08:03] LABS: BASOPHILS ABSOLUTE AUTO 0.02 K/mm3 (0.00-0.23); BASOPHILS PERCENT AUTO 0 % (0-2); EOSINOPHILS PERCENT AUTO 2 % (0-6); Hematocrit 40.3 % (37.0-53.0); Hemoglobin 13.6 g/dL (13.5-17.5); IMMATURE GRAN ABSOLUTE AUTO 0.02 K/mm3 (0.00-0.10); IMMATURE GRAN PERCENT AUTO 0 % (0-1); LYMPHOCYTES ABSOLUTE AUTO 1.33 K/mm3 (0.84-5.20); LYMPHOCYTES PERCENT AUTO 21 % (21-46); MONOCYTES ABSOLUTE AUTO 0.58 K/mm3 (0.16-1.47); MONOCYTES PERCENT AUTO 9 % (4-13); Mean Corpuscular HGB 30.5 pg (26.0-34.0); Mean Corpuscular HGB Conc 33.7 g/dL (31.5-36.5); Mean Corpuscular Volume 90 fL (80-100); Mean Platelet Volume 11.3 fL (9.1-12.4); NEUTROPHILS ABSOLUTE AUTO 4.23 K/mm3 (1.96-9.15); NEUTROPHILS PERCENT AUTO 67 % (41-73); Platelet Count 168 K/mm3 (150-400); RDW Coefficient Variation 13.7 % (11.7-14.2); RDW Standard Deviation 45.3 fL (35.1-46.3); Red Blood Cell Count 4.46 M/mm3 (4.30-5.90); White Blood Cell Count 6.28 K/mm3 (4.00-11.30)
[2020-10-26 08:17] LABS: Anion Gap 7 mmol/L (6-16); Blood Urea Nitrogen 20 mg/dL (8-24); Bun/Creatinine Ratio 30.6 (12.0-20.0); CO2, Blood 24 mmol/L (21-32); Chloride, Blood 107 mmol/L (98-108); Creatinine, Blood 0.65 mg/dL (0.60-1.20); Glomerular Filtration Rate >60 (60-); Glucose, Blood 112 mg/dL (70-99); Sodium, Blood 138 mmol/L (136-145)
--- NOTE | 2020-10-26 16:45 | NUR ---
PATIENT PLEASANT AND COOPERATIVE WITH STAFF. COMPLAINS OF PAIN TWICE THIS SHIFT WITH EFFECTIVE RESULTS FROM REQUESTED PAIN MEDICATION. VITALS STABLE. INDEPENDANT IN ROOM. NO ACUTE CHANGES TO BE REPORTED AT THIS TIME.
--- NOTE | 2020-10-27 03:56 | NUR ---
ONCOLOGY RN SUMMARY PT A&OX4, ABLE TO MAKE NEEDS KNOWN. PLEASANT AND COOPERATIVE TO CARE. MEDICATED FOR PAIN PER EMAR. NO C/O CP, SOB, OR N&V. PT ON IV ABX, NO ASE NOTED. PT CALM AND RESTED IN BED T/O SHIFT. BED AT LOWEST POSITION, CALL LIGHT WITHIN REACH.
[2020-10-27 08:19] LABS: BASOPHILS ABSOLUTE AUTO 0.03 K/mm3 (0.00-0.23); BASOPHILS PERCENT AUTO 0 % (0-2); EOSINOPHILS PERCENT AUTO 3 % (0-6); Hematocrit 41.2 % (37.0-53.0); Hemoglobin 13.9 g/dL (13.5-17.5); IMMATURE GRAN ABSOLUTE AUTO 0.03 K/mm3 (0.00-0.10); IMMATURE GRAN PERCENT AUTO 0 % (0-1); LYMPHOCYTES ABSOLUTE AUTO 1.78 K/mm3 (0.84-5.20); LYMPHOCYTES PERCENT AUTO 25 % (21-46); MONOCYTES ABSOLUTE AUTO 0.76 K/mm3 (0.16-1.47); MONOCYTES PERCENT AUTO 11 % (4-13); Mean Corpuscular HGB 30.5 pg (26.0-34.0); Mean Corpuscular HGB Conc 33.7 g/dL (31.5-36.5); Mean Corpuscular Volume 90 fL (80-100); Mean Platelet Volume 10.8 fL (9.1-12.4); NEUTROPHILS ABSOLUTE AUTO 4.34 K/mm3 (1.96-9.15); NEUTROPHILS PERCENT AUTO 61 % (41-73); Platelet Count 211 K/mm3 (150-400); RDW Coefficient Variation 13.5 % (11.7-14.2); RDW Standard Deviation 43.9 fL (35.1-46.3); Red Blood Cell Count 4.56 M/mm3 (4.30-5.90); White Blood Cell Count 7.14 K/mm3 (4.00-11.30)
[2020-10-27 08:40] LABS: Anion Gap 6 mmol/L (6-16); Blood Urea Nitrogen 15 mg/dL (8-24); Bun/Creatinine Ratio 23.8 (12.0-20.0); CO2, Blood 26 mmol/L (21-32); Calcium, Blood 8.3 mg/dL (8.5-10.1); Chloride, Blood 104 mmol/L (98-108); Creatinine, Blood 0.63 mg/dL (0.60-1.20); Glomerular Filtration Rate >60 (60-); Glucose, Blood 108 mg/dL (70-99); Potassium, Blood 4.2 mmol/L (3.5-5.5); Sodium, Blood 136 mmol/L (136-145)
[2020-10-27] MEDS ORDERED: CEFU500T30 PO (10:58)
[2020-10-27] MEDS ORDERED: IBUP600 PO (10:59)
--- NOTE | 2020-10-27 11:15 | NUR ---
ATTEMPTED TO CALL ALTAF AT [facility] AT [phone] TO GIVE REPORT, LEFT MESSAGE FOR HIM TO CALL ME
--- NOTE | 2020-10-27 12:52 | NUR ---
DISCHARGE SUMMARY MANDIE LEFT BY TO MEET [facility]. PAPERWORK WENT OVER WITH HIM, PIV REMOVED. [facility] WILL FILL RX ([facility]). PT IS AWARE OF HIS SURGERY ON 11/02. [facility] IS GOING TO HELP HIM SET UP A PCP. EDUCATION GIVEN.
[2020-12-26] MEDS ORDERED: BUPRENORPHINE HC2 MG SL (13:31)
[2020-12-26] MEDS ORDERED: HYDPAM50 PO (13:32)
[2020-12-26] MEDS ORDERED: MULVITA PO (13:32)
== END 2020-10-27 12:42 | disposition home or self-care (01) | DRG 871 ==
LOC: ER 20:31 → PCU 20:32 → ER 10-23 00:30 → PCU 10-23 00:39 → MEDS 10-23 15:49 → ENPENDDIS 10-26 16:05 → MEDS 10-27 11:53
PROVIDERS: Family Medicine; Physician Assistant; Student in an Organized Health Care Education/Training Program; ADMIT Internal Medicine
DX: A41.9 Sepsis, unspecified organism (principal); G92 Toxic encephalopathy; G93.40 Encephalopathy, unspecified; K40.90 Unilateral inguinal hernia, without obstruction or gangrene, not specified as recurrent; F19.10 Other psychoactive substance abuse, uncomplicated; B19.20 Unspecified viral hepatitis C without hepatic coma; Z59.0 Homelessness; F17.210 Nicotine dependence, cigarettes, uncomplicated
CPT/HCPCS: 36415; 74177; 80048; 80053; 81001; 85025; 87040; 87077; 87086; 87186; 96365-59; 96372; 96375; 96376; 99285-25; A9270; G0378; J0696; J1170; J1650; J1885; J3010; J3360; J3480; J7030; J7050; P9046; Q9967

== ENCOUNTER 2020-12-29 06:59 | Day surgery (SDC) | payer OTHER ==
[~2020-12-29] VITALS: Ht 167.6 cm; Wt 86.9 kg
[~2020-12-29 06:59] MED LIST changes: +BUPRENORPHINE HC2 MG SL; +CEFP200 PO; +CEFU500T30 PO; +HYDPAM50 PO; +IBUP600 PO; +MULVITA PO
--- NOTE | 2020-12-29 07:30 | NUR ---
Ambulatory in Day Surgery Lungs clear T/O to Auscultation. Pre-Op teaching done. Pt verbalizes understanding. Patient States Post-Procedure ride home has been arranged.
--- NOTE | 2020-12-29 12:25 | NUR ---
Patient up to Ambulate independently. Gait steady. Discharge instructions reviewed with patient. Patient verbalizes understanding. Copy given to patient to take home. Discharged via wheelchair to private car for ride home WITH FRIEND.
== END 2020-12-29 12:25 | disposition home or self-care (01) ==
LOC: ORSCMMR 06:59 → ORD 09:00 → ORSCMMR 09:00
PROVIDERS: Surgery
PROC: 0YU60JZ Supplement Left Inguinal Region with Synthetic Substitute, Open Approach (ICD-10-PCS; principal; 2020-12-29 07:30)
DX: K40.30 Unilateral inguinal hernia, with obstruction, without gangrene, not specified as recurrent (principal); B19.20 Unspecified viral hepatitis C without hepatic coma; Z79.899 Other long term (current) drug therapy; Z87.891 Personal history of nicotine dependence
CPT/HCPCS: 87070; 87081; 88302; C1781; J1100; J1885; J2250; J2405; J2704; J3010; J7120

== ENCOUNTER 2021-05-06 16:27 | Emergency (ER) | payer OTHER ==
[~2021-05-06] VITALS: Ht 172.7 cm; Wt 77.1 kg
[2021-05-06] MEDS ORDERED: TRAZ50 PO (22:25)
[2021-05-06] MEDS ORDERED: Bactrim Ds Tab1 EACH PO (23:58)
== END 2021-05-07 00:15 | disposition home or self-care (01) ==
LOC: ER 16:27
DX: F11.23 Opioid dependence with withdrawal (principal); L02.413 Cutaneous abscess of right upper limb
CPT/HCPCS: 10060; 99283-25; A9270

== ENCOUNTER 2021-05-22 18:52 | Emergency (ER) | payer OTHER ==
[~2021-05-22] VITALS: Ht 167.6 cm; Wt 86.2 kg
[~2021-05-22 18:52] MED LIST changes: +Bactrim Ds Tab1 EACH PO; +TRAZ50 PO
== END 2021-05-22 23:53 | disposition home or self-care (01) ==
LOC: ER 18:52
DX: F11.23 Opioid dependence with withdrawal (principal); Z87.891 Personal history of nicotine dependence
CPT/HCPCS: 99283

== ENCOUNTER 2021-10-12 23:26 | Emergency (ER) | payer OTHER ==
[~2021-10-12] VITALS: Ht 167.6 cm; Wt 87.1 kg
[2021-10-13 02:32] LABS: BASOPHILS ABSOLUTE AUTO 0.01 K/mm3 (0.00-0.23); BASOPHILS PERCENT AUTO 0 % (0-2); EOSINOPHILS ABSOLUTE AUTO 0.01 K/mm3 (0.00-0.68); EOSINOPHILS PERCENT AUTO 0 % (0-6); Hematocrit 38.2 % (37.0-53.0); Hemoglobin 13.8 g/dL (13.5-17.5); IMMATURE GRAN ABSOLUTE AUTO 0.02 K/mm3 (0.00-0.10); IMMATURE GRAN PERCENT AUTO 0 % (0-1); LYMPHOCYTES ABSOLUTE AUTO 0.15 K/mm3 (0.84-5.20); LYMPHOCYTES PERCENT AUTO 2 % (21-46); MONOCYTES PERCENT AUTO 1 % (4-13); Mean Corpuscular HGB 31.7 pg (26.0-34.0); Mean Corpuscular HGB Conc 36.1 g/dL (31.5-36.5); Mean Corpuscular Volume 88 fL (80-100); NEUTROPHILS ABSOLUTE AUTO 6.91 K/mm3 (1.96-9.15); NEUTROPHILS PERCENT AUTO 96 % (41-73); Platelet Count 81 K/mm3 (150-400); RDW Coefficient Variation 13.1 % (11.7-14.2); RDW Standard Deviation 42.4 fL (35.1-46.3); Red Blood Cell Count 4.35 M/mm3 (4.30-5.90)
[2021-10-13 02:46] LABS: Anion Gap 8 mmol/L (6-16); Blood Urea Nitrogen 17 mg/dL (8-24); Bun/Creatinine Ratio 20.5 (12.0-20.0); CO2, Blood 22 mmol/L (21-32); Calcium, Blood 8.4 mg/dL (8.5-10.1); Chloride, Blood 109 mmol/L (98-108); Creatinine, Blood 0.83 mg/dL (0.60-1.20); Glomerular Filtration Rate >60 (60-); Glucose, Blood 203 mg/dL (70-99); Sodium, Blood 139 mmol/L (136-145)
[2021-10-13 03:42] LABS: U Amphetamine Screen DETECTED; U Barbituate Screen Not Detected; U Benzodiazapine Screen Not Detected; U Buprenorphine Screen Not Detected; U Cannabinoids Screen Not Detected; U Cocaine Screen Not Detected; U Methadone Screen Not Detected; U Methamphetamine Screen DETECTED; U Opiates Screen DETECTED; U Oxycodone Screen Not Detected; U Phencyclidine Screen Not Detected; U Propoxyphene Screen Not Detected
== END 2021-10-13 05:40 | disposition home or self-care (01) ==
LOC: ER 23:26
PROVIDERS: Student in an Organized Health Care Education/Training Program
DX: F19.10 Other psychoactive substance abuse, uncomplicated (principal)
CPT/HCPCS: 36415; 71045; 80048; 85025; 93005; 93010; 99284-25; A9270

== ENCOUNTER 2021-10-23 15:27 | Observation (INO) | payer OTHER ==
[~2021-10-23] VITALS: Ht 167.6 cm; Wt 88.5 kg
[2021-10-23 16:42] LABS: Source, Urine Clean Catch
[2021-10-23 16:45] LABS: Appearance, Urine Clear (Clear); Blood, Urine Neg (Neg); Color, Urine Yellow (P-Yellow); Glucose Qualitative, Urine Neg (Neg); Ketones, Urine 1+ (Neg); Leukocyte Esterase, Urine 1+ (Neg); Nitrite, Urine Neg (Neg); Protein, Urine 2+ (Neg); Urobilinogen, Urine 4+ (Normal); pH, Urine 6.5 (5.0-8.0)
[2021-10-23 16:47] LABS: BASOPHILS ABSOLUTE AUTO 0.02 K/mm3 (0.00-0.23); BASOPHILS PERCENT AUTO 0 % (0-2); EOSINOPHILS ABSOLUTE AUTO 0.04 K/mm3 (0.00-0.68); EOSINOPHILS PERCENT AUTO 1 % (0-6); Hematocrit 38.1 % (37.0-53.0); Hemoglobin 13.5 g/dL (13.5-17.5); IMMATURE GRAN ABSOLUTE AUTO 0.01 K/mm3 (0.00-0.10); IMMATURE GRAN PERCENT AUTO 0 % (0-1); LYMPHOCYTES ABSOLUTE AUTO 1.17 K/mm3 (0.84-5.20); LYMPHOCYTES PERCENT AUTO 23 % (21-46); MONOCYTES ABSOLUTE AUTO 0.41 K/mm3 (0.16-1.47); MONOCYTES PERCENT AUTO 8 % (4-13); Mean Corpuscular HGB 31.6 pg (26.0-34.0); Mean Corpuscular HGB Conc 35.4 g/dL (31.5-36.5); Mean Corpuscular Volume 89 fL (80-100); Mean Platelet Volume 11.6 fL (9.1-12.4); NEUTROPHILS ABSOLUTE AUTO 3.38 K/mm3 (1.96-9.15); NEUTROPHILS PERCENT AUTO 67 % (41-73); Platelet Count 118 K/mm3 (150-400); RDW Coefficient Variation 13.5 % (11.7-14.2); Red Blood Cell Count 4.27 M/mm3 (4.30-5.90); White Blood Cell Count 5.03 K/mm3 (4.00-11.30)
[2021-10-23 16:56] LABS: Bilirubin, Urine 1+ (Neg)
[2021-10-23 16:58] LABS: Bacteria Few /hpf; Mucus Heavy (0-Heavy); Red Blood Cells, Urine 0-2 /hpf (0-2); Squamous Epithelial Cells Few /hpf (Few)
[2021-10-23 17:00] LABS: U Amphetamine Screen DETECTED; U Barbituate Screen Not Detected; U Benzodiazapine Screen Not Detected; U Buprenorphine Screen Not Detected; U Cannabinoids Screen DETECTED; U Cocaine Screen Not Detected; U Methadone Screen Not Detected; U Methamphetamine Screen DETECTED; U Opiates Screen DETECTED; U Oxycodone Screen Not Detected; U Phencyclidine Screen Not Detected; U Propoxyphene Screen Not Detected
[2021-10-23 17:10] LABS: Alanine Aminotransfer (ALT/SGP 67 U/L (12-78); Albumin, Blood 2.8 g/dL (3.4-5.0); Albumin/Globulin Ratio 0.7 (0.8-1.8); Alk Phos 129 U/L (50-136); Anion Gap 6 mmol/L (6-16); Aspartate Aminotrans (AST/SGOT 50 U/L (12-37); Bilirubin, Total 0.8 mg/dL (0.1-1.0); Blood Urea Nitrogen 13 mg/dL (8-24); Bun/Creatinine Ratio 19.1 (12.0-20.0); CO2, Blood 26 mmol/L (21-32); Chloride, Blood 109 mmol/L (98-108); Creatinine, Blood 0.68 mg/dL (0.60-1.20); Globulin, Blood 4.2 g/dL (2.2-4.0); Glomerular Filtration Rate >60 (60-); Glucose, Blood 121 mg/dL (70-99); Potassium, Blood 3.6 mmol/L (3.5-5.5); Salicylate <1.7 mg/dL (2.8-20.0); Sodium, Blood 141 mmol/L (136-145)
[2021-10-23 17:13] LABS: Acetaminophen, Random <2.0 ug/mL (10.0-30.0)
[2021-10-23 17:53] LABS: Ethanol (Alcohol), Blood, Med <3 mg/dL
[2021-10-23 17:53] LABS: Influenza A, PCR NEGATIVE (NEGATIVE); Influenza B, PCR NEGATIVE (NEGATIVE); Resp Syncytial Virus, PCR NEGATIVE (NEGATIVE); SARS-Cov-2 (COVID-19) PCR, MMC NEGATIVE (NEGATIVE)
== END 2021-10-25 06:52 ==
LOC: ER 15:27 → EOR 15:28
PROVIDERS: Physician Assistant; ADMIT Emergency Medicine
DX: T40.602A Poisoning by unspecified narcotics, intentional self-harm, initial encounter (principal); F33.9 Major depressive disorder, recurrent, unspecified; F19.10 Other psychoactive substance abuse, uncomplicated; F17.210 Nicotine dependence, cigarettes, uncomplicated; L02.416 Cutaneous abscess of left lower limb; Z20.822 Contact with and (suspected) exposure to COVID-19
CPT/HCPCS: 0241U; 36415; 80053; 81001; 85025; 87086; 93005; 93010; 99285; A9270; G0378; G0480; Q0177; Q3014

== ENCOUNTER 2021-11-09 13:57 | Emergency (ER) | payer OTHER ==
[~2021-11-09] VITALS: Ht 167.6 cm; Wt 83.9 kg
== END 2021-11-09 17:20 | disposition home or self-care (01) ==
LOC: ER 13:57
DX: Z76.0 Encounter for issue of repeat prescription (principal)
CPT/HCPCS: 99283

== ENCOUNTER 2021-11-10 11:07 | Emergency (ER) | payer OTHER ==
[~2021-11-10] VITALS: Ht 167.6 cm; Wt 61.2 kg
== END 2021-11-10 13:58 | disposition home or self-care (01) ==
LOC: ER 11:07
DX: F41.9 Anxiety disorder, unspecified (principal); F11.90 Opioid use, unspecified, uncomplicated; Z76.0 Encounter for issue of repeat prescription; Z79.899 Other long term (current) drug therapy; F17.200 Nicotine dependence, unspecified, uncomplicated
CPT/HCPCS: 99283; A9270

== ENCOUNTER 2022-01-01 15:37 | Emergency (ER) | payer OTHER ==
[~2022-01-01] VITALS: Ht 167.6 cm; Wt 81.7 kg
[2022-01-01] MEDS ORDERED: CEPH500 PO (16:22)
== END 2022-01-01 16:38 | disposition home or self-care (01) ==
LOC: ER 15:37
DX: L02.416 Cutaneous abscess of left lower limb (principal); L03.116 Cellulitis of left lower limb; Z87.891 Personal history of nicotine dependence
CPT/HCPCS: 99282

== ENCOUNTER 2022-05-08 20:31 | Emergency (ER) | payer OTHER ==
[~2022-05-08] VITALS: Ht 167.6 cm; Wt 81.7 kg
[~2022-05-08 20:31] MED LIST changes: +CEPH500 PO
[2022-05-08] MEDS ORDERED: BUPRENORPHIN-N1 EAC5 SL (20:38)
[2022-05-08] MEDS ORDERED: IBUP800 PO (23:21)
== END 2022-05-08 23:39 | disposition home or self-care (01) ==
LOC: ER 20:31
DX: S62.002A Unspecified fracture of navicular [scaphoid] bone of left wrist, initial encounter for closed fracture (principal); V18.4XXA Pedal cycle driver injured in noncollision transport accident in traffic accident, initial encounter; Y93.55 Activity, bike riding; Z87.891 Personal history of nicotine dependence
CPT/HCPCS: 73110; J1885

== ENCOUNTER 2022-05-12 21:29 | Emergency (ER) | payer OTHER ==
[~2022-05-12] VITALS: Ht 170.2 cm; Wt 83.9 kg
[~2022-05-12 21:29] MED LIST changes: +BUPRENORPHIN-N1 EAC5 SL
== END 2022-05-13 04:28 | disposition home or self-care (01) ==
LOC: ER 21:29
DX: S69.92XA Unspecified injury of left wrist, hand and finger(s), initial encounter (principal); V18.4XXA Pedal cycle driver injured in noncollision transport accident in traffic accident, initial encounter; Y93.55 Activity, bike riding; Z59.00 Homelessness unspecified
CPT/HCPCS: 29125; 73090; 73110; 99283-25

== ENCOUNTER 2022-05-15 18:59 | Emergency (ER) | payer OTHER ==
[~2022-05-15] VITALS: Ht 167.6 cm; Wt 70.8 kg
[2022-05-15] MEDS ORDERED: NARCAN4 M1 INH (20:11)
== END 2022-05-15 20:20 | disposition home or self-care (01) ==
LOC: ER 18:59
DX: T40.1X1A Poisoning by heroin, accidental (unintentional), initial encounter (principal); R40.4 Transient alteration of awareness; Z87.891 Personal history of nicotine dependence
CPT/HCPCS: 99284

== ENCOUNTER 2025-01-23 10:14 | Emergency (ER) | payer OTHER ==
[~2025-01-23] VITALS: Ht 167.6 cm; Wt 97.5 kg
[~2025-01-23 10:14] MED LIST changes: +NARCAN4 M1 INH
[2025-01-23 10:30] VITALS: BP 131/83
[2025-01-23] MEDS ORDERED: BUPRENORPHINE HC2 M1 (10:41)
== END 2025-01-23 12:52 | disposition home or self-care (01) ==
LOC: ER 10:14
DX: S00.01XA Abrasion of scalp, initial encounter (principal); S00.31XA Abrasion of nose, initial encounter; S60.319A Abrasion of unspecified thumb, initial encounter; F17.210 Nicotine dependence, cigarettes, uncomplicated; W01.0XXA Fall on same level from slipping, tripping and stumbling without subsequent striking against object, initial encounter
CPT/HCPCS: 93005; 93010; 99284-25

== ENCOUNTER 2025-02-01 12:28 | Inpatient (IN) | payer OTHER ==
[~2025-02-01] VITALS: Ht 167.6 cm; Wt 90.7 kg
[~2025-02-01 12:28] MED LIST changes: +BUPRENORPHINE HC2 M1
[2025-02-01 13:59] LABS: BASOPHILS ABSOLUTE AUTO 0.01 K/mm3 (0.00-0.23); BASOPHILS PERCENT AUTO 0 % (0-2); EOSINOPHILS ABSOLUTE AUTO 0.11 K/mm3 (0.00-0.68); EOSINOPHILS PERCENT AUTO 5 % (0-6); Hematocrit 34.4 % (37.0-53.0); Hemoglobin 12.1 g/dL (13.5-17.5); IMMATURE GRAN PERCENT AUTO 0 % (0-1); LYMPHOCYTES ABSOLUTE AUTO 1.25 K/mm3 (0.84-5.20); LYMPHOCYTES PERCENT AUTO 56 % (21-46); MONOCYTES ABSOLUTE AUTO 0.18 K/mm3 (0.16-1.47); MONOCYTES PERCENT AUTO 8 % (4-13); Mean Corpuscular HGB 31.3 pg (26.0-34.0); Mean Corpuscular HGB Conc 35.2 g/dL (31.5-36.5); Mean Corpuscular Volume 89 fL (80-100); NEUTROPHILS PERCENT AUTO 31 % (41-73); Platelet Count 53 K/mm3 (150-400); RDW Coefficient Variation 13.4 % (11.7-14.2); RDW Standard Deviation 43.9 fL (35.1-46.3); Red Blood Cell Count 3.87 M/mm3 (4.30-5.90); White Blood Cell Count 2.25 K/mm3 (4.00-11.30)
[2025-02-01 14:05] LABS: Mean Platelet Volume 13.6 fL (9.1-12.4)
[2025-02-01 14:12] LABS: International Normalized Ratio 1.33; Prothrombin Time Results 13.9 Sec (9.7-11.5)
[2025-02-01 14:35] LABS: Albumin, Blood 2.8 g/dL (3.4-5.0); Albumin/Globulin Ratio 0.7 (0.8-1.8); Bilirubin, Total 0.8 mg/dL (0.1-1.0); Bun/Creatinine Ratio 19.6 (12.0-20.0); Calcium, Blood 7.9 mg/dL (8.5-10.1); Creatinine, Blood 0.82 mg/dL (0.60-1.20); Globulin, Blood 4.1 g/dL (2.2-4.0); Total Protein, Blood 6.9 g/dL (6.4-8.2)
[2025-02-01] MEDS ORDERED: Furosemide 10 MG/ML 4ML Vial IV ONE (15:20)
[2025-02-01] MEDS ORDERED: Lactulose 20 GM/30 ML UDC PO ONE (15:20)
[2025-02-01] MEDS ORDERED: Ondansetron 4 MG TAB PO PRN (15:30)
[2025-02-01] MEDS ORDERED: TraZODone HCl 50 MG Tab PO PRN (15:30)
[2025-02-01] MEDS ORDERED: Carvedilol 3.125 MG Tab PO SCH (17:00)
[2025-02-01 20:14] VITALS: BP 118/63
[2025-02-01] MEDS ORDERED: Metoprolol Tartrate 25 MG Tab PO SCH (21:00)
[2025-02-01] MEDS ORDERED: Prazosin HCl 1 MG Cap PO SCH (21:00)
[2025-02-01] MEDS ORDERED: Lactobacil 2-S.Thermo-Bifido 1 1 Cap PO SCH (21:00)
[2025-02-01] MEDS ORDERED: Famotidine 20 MG Tab PO SCH (21:00)
[2025-02-01] MEDS ORDERED: Lactulose 20 GM/30 ML UDC PO SCH (21:00)
[2025-02-01] MEDS ORDERED: RifAXIMin 550 MG Tablet PO SCH (21:00)
[2025-02-01] MEDS ORDERED: Heparin Sodium,Porcine 5,000 UNIT/0.5 ML SDV SC SCH (21:00)
--- NOTE | 2025-02-02 03:37 | NUR ---
VSS, RRR AND UNLABORED, COMPLIANT WITH CPAP AT NIGHT. NO DIARRHEA, INCONTINENT BASELINE, NO COMPLAINTS OF PAIN, NO CHEST PAIN OR SOB REPORTED. PO ABX ADMINISTERED, CONTACT PRECAUTIONS MAINTAINED. NO CONCERNS AT THIS TIME.
--- NOTE | 2025-02-02 03:42 | NUR ---
PT ARRIVED TO UNIT STABLE, ABLE TO AMBULATE TO BED AND BATHROOM INDEPENDENTLY. ORIENTED TO CALL LIGHT AND ROOM, FOLLOWS COMMANDS. IS SLOW TO RESPOND AT TIMES BUT REMAINS ALERT AND ORIENTED X4. IS CALM, COOPERATIVE, AND PLEASANT. BOTH OF HIS SISTERS NAMES WRITTEN ON WHITEBOARD, YOUNGER SISTER IN ROOM OVERNIGHT (FROM [place]). NO CONCERNS AT THIS TIME, TAKES MEDICATION WELL, IS CONTINENT, VSS, RRR AND UNLABORED, REMAINS ON ROOM AIR. DENIES ANY PHYSICAL PAIN, CHEST PAIN, OR SHORTNESS OF BREATH, RESTING WELL THROUGHOUT NIGHT.
[2025-02-02 05:02] LABS: Hemoglobin 11.8 g/dL (13.5-17.5)
[2025-02-02 05:08] LABS: Hematocrit 33.2 % (37.0-53.0); Mean Corpuscular HGB 31.4 pg (26.0-34.0); Mean Corpuscular HGB Conc 35.5 g/dL (31.5-36.5); Mean Corpuscular Volume 88 fL (80-100); Platelet Count 53 K/mm3 (150-400); RDW Coefficient Variation 13.4 % (11.7-14.2); RDW Standard Deviation 43.8 fL (35.1-46.3); Red Blood Cell Count 3.76 M/mm3 (4.30-5.90); White Blood Cell Count 2.33 K/mm3 (4.00-11.30)
[2025-02-02 05:21] LABS: Albumin, Blood 2.8 g/dL (3.4-5.0); Albumin/Globulin Ratio 0.8 (0.8-1.8); Bilirubin, Total 0.9 mg/dL (0.1-1.0); Bun/Creatinine Ratio 21.2 (12.0-20.0); Calcium, Blood 7.9 mg/dL (8.5-10.1); Creatinine, Blood 0.76 mg/dL (0.60-1.20); Globulin, Blood 3.7 g/dL (2.2-4.0); Potassium, Blood 3.4 mmol/L (3.5-5.5); Total Protein, Blood 6.5 g/dL (6.4-8.2)
[2025-02-02 05:24] LABS: Mean Platelet Volume 13.1 fL (9.1-12.4)
[2025-02-02 06:04] VITALS: BP 109/60
[2025-02-02 07:38] VITALS: BP 110/63
[2025-02-02] MEDS ORDERED: Metolazone 5 MG Tab PO ONE (08:00)
[2025-02-02] MEDS ORDERED: Potassium Chloride 20 MEQ TabCR PO ONE (08:00)
[2025-02-02] MEDS ORDERED: Furosemide 20 MG Tab PO SCH (09:00)
[2025-02-02] MEDS ORDERED: Furosemide 10 MG/ML 4ML Vial IV SCH ×2 (09:00→21:00)
[2025-02-02] MEDS ORDERED: BUPRENORPHINE HC8 MG SL (15:12)
[2025-02-02] MEDS ORDERED: Hydroxyzine HCl50 MG PO (15:13)
[2025-02-02] MEDS ORDERED: FURO40 PO (15:13)
[2025-02-02] MEDS ORDERED: CARV3.125 PO (15:13)
[2025-02-02] MEDS ORDERED: LACT10SY PO (15:14)
[2025-02-02] MEDS ORDERED: POTA10T PO (15:14)
[2025-02-02] MEDS ORDERED: ERZOFRI156 MG/1 M IM (15:14)
[2025-02-02] MEDS ORDERED: PRAZ1 PO (15:15)
[2025-02-02] MEDS ORDERED: TRAZ50 PO (15:15)
[2025-02-02 16:39] VITALS: BP 143/89
[2025-02-02] MEDS ORDERED: Carvedilol 3.125 MG Tab PO SCH (17:00)
--- NOTE | 2025-02-02 17:09 | NUR ---
PT AO AND COOPERATIVE OF CARE. PT HAS BEEN VERY TIRED TODAY AND HAS BEEN RESTING ALOT. PT HAS NOW HAD 3 BMs TOWARDS END OF SHIFT AND HAS BEEN INDEPENDENT IN ROOM. PT HAS SISTER AT BEDSIDE AND IS UP AND AWAKE TALKING TO HER CURRENTLY. PT HAD SYSTOLIC IN THE AM OF [address] CRYSTAL REQUESTED THE DOSE BE HELD. CALL LIGHT IN IN REACH WILL CONTINUE TO MONITOR.
[2025-02-02 19:46] VITALS: BP 125/77
--- NOTE | 2025-02-03 03:41 | NUR ---
SHIFT SUMMARY ADMITTED FOR HEPATIC ENCEPHALOPATHY. FULL CODE. MONITORING [facility]IA LABS. 1500 ML FLUID RESTRICTION. LOW SODIUM DIET. ON RA. INDEPENDENT IN ROOM. LACTULOSE IS SCHEDULED. A&O X3. PLAN IS FOR PT TO GO HOME WITH HIS SISTER. HX: CIRRHOSIS, HEP C.
[2025-02-03 04:47] VITALS: BP 120/73
[2025-02-03 04:52] LABS: Hematocrit 35.3 % (37.0-53.0); Hemoglobin 12.7 g/dL (13.5-17.5); Mean Corpuscular HGB 30.9 pg (26.0-34.0); Mean Corpuscular Volume 86 fL (80-100); Platelet Count 58 K/mm3 (150-400); RDW Coefficient Variation 13.3 % (11.7-14.2); RDW Standard Deviation 42.1 fL (35.1-46.3); Red Blood Cell Count 4.11 M/mm3 (4.30-5.90)
[2025-02-03 05:00] LABS: Mean Platelet Volume 13.8 fL (9.1-12.4)
[2025-02-03 05:15] LABS: Albumin/Globulin Ratio 0.7 (0.8-1.8); Bun/Creatinine Ratio 20.2 (12.0-20.0); Calcium, Blood 8.5 mg/dL (8.5-10.1); Creatinine, Blood 0.84 mg/dL (0.60-1.20); Globulin, Blood 4.4 g/dL (2.2-4.0); Phosphorus, Blood 4.3 mg/dL (2.5-4.9); Potassium, Blood 3.2 mmol/L (3.5-5.5); Total Protein, Blood 7.4 g/dL (6.4-8.2)
[2025-02-03 07:40] VITALS: BP 107/56
[2025-02-03] MEDS ORDERED: Potassium Chloride 20 MEQ TabCR PO SCH (08:30)
[2025-02-03 15:29] VITALS: BP 127/75
[2025-02-03 16:42] VITALS: BP 133/76
--- NOTE | 2025-02-03 17:12 | NUR ---
SHIFT SUMMARY MR SHAFFER IS ORIENTATED TO SELF, PLACE, YEAR, SOMETIMES GETS MONTH INCORRECT. HIS RESPONSES ARE LOW TONE, WHEN ASKED HE SAID HE STILL FEELS "A LITTLE FUZZY". SOMETIMES HE HAS DELAY IN REACTION. UP AMBULATING IN THE HALLS WITH STEADY GAIT. HE DRANK 2 DOSES OF LACTULOSE TODAY, NO BM SO FAR THIS SHIFT. HE HAS BEEN SLEEPY. TWO SISTERS VISITED HIM TODAY. IN CHAIR, CALL LIGHT IN REACH.
[2025-02-03 19:59] VITALS: BP 122/75
[2025-02-04] MEDS ORDERED: TraZODone HCl 50 MG Tab PO ONE ×2 (00:45→23:55)
--- NOTE | 2025-02-04 00:45 | NUR ---
CALLED HOSPITALIST PER PATIENT FAMILY MEMBER'S REQUEST. PATIENT'S SISTER INFORMS US THAT THE PATIENT IS PACING IN THE ROOM RESTLESSLY AND REQUESTS HOME MEDS BE RESUMED. NEW ORDERS IN EMAR.
[2025-02-04 04:32] VITALS: BP 114/69
[2025-02-04 04:56] LABS: Hematocrit 37.3 % (37.0-53.0); Hemoglobin 13.3 g/dL (13.5-17.5); Mean Corpuscular HGB 30.8 pg (26.0-34.0); Mean Corpuscular HGB Conc 35.7 g/dL (31.5-36.5); Mean Corpuscular Volume 86 fL (80-100); Platelet Count 60 K/mm3 (150-400); RDW Coefficient Variation 13.2 % (11.7-14.2); RDW Standard Deviation 41.7 fL (35.1-46.3); Red Blood Cell Count 4.32 M/mm3 (4.30-5.90); White Blood Cell Count 2.78 K/mm3 (4.00-11.30)
[2025-02-04 05:02] LABS: Mean Platelet Volume 13.1 fL (9.1-12.4)
--- NOTE | 2025-02-04 05:09 | NUR ---
SHIFT SUMMARY ADMITTED FOR HEPATIC ENCEPHALOPATHY. FULL CODE. 1500 ML FLUID RESTRICTION. STRICT I &O'S. DAILY WEIGHTS. 2 G LOW NA+ DIET. ON RA, INDEPENDENT IN ROOM. HE IS VERY WITHDRAWN. THIS SHIFT HE WAS PACING IN ROOM RESTLESSLY, SEE PREVIOUS NOTE. MEDICATED PER EMAR. REMOTE HX OF POLYSUBSTANCE ABUSE. PLAN IS TO DC WITH SISTER TO [place] WHEN STABLE FOR DC. HX: CIRRHOSIS, HEP C.
[2025-02-04 05:24] LABS: Albumin, Blood 3.4 g/dL (3.4-5.0); Albumin/Globulin Ratio 0.8 (0.8-1.8); Bilirubin, Total 1.6 mg/dL (0.1-1.0); Bun/Creatinine Ratio 25.9 (12.0-20.0); Calcium, Blood 8.8 mg/dL (8.5-10.1); Creatinine, Blood 0.81 mg/dL (0.60-1.20); Globulin, Blood 4.5 g/dL (2.2-4.0); Magnesium, Blood 1.8 mg/dL (1.6-2.4); Phosphorus, Blood 4.4 mg/dL (2.5-4.9); Potassium, Blood 3.3 mmol/L (3.5-5.5); Total Protein, Blood 7.9 g/dL (6.4-8.2)
[2025-02-04 07:30] VITALS: BP 115/63
[2025-02-04] MEDS ORDERED: RIFA550T2 PO (15:24)
[2025-02-04 15:35] VITALS: BP 121/65
--- NOTE | 2025-02-04 18:04 | NUR ---
SHIFT SUMMARY CLIENT REMAIN A&O X 3, BUT SAYS HIS HEAD FEELS CLEARER TODAY. CLIENT SLEPT MOST OF MORNING, BUT DID AMBULATE AROUND THE UNIT. GAIT WAS STEADY AND HELD A CONVERSATION THROUGH THE EVOLUTION. CLIENT REPORTS HAVING 3 BM THIS SHIFT.FAMILY WAS HERE TO VISIT INTERMITENTLY TODAY. BED IN LOWEST PSITION WITH HEAD RAILS UP FOR SAFETY. CALL LIGHT WITHIN REACH
[2025-02-04 19:39] VITALS: BP 106/58
[2025-02-05] MEDS ORDERED: TraZODone HCl 50 MG Tab PO PRN
[2025-02-05 04:30] VITALS: BP 104/57
--- NOTE | 2025-02-05 04:30 | NUR ---
SHIFT SUMMARY HEPATIC CIRRHOSIS & ENCEPHALOPATHY, IMPROVING. FULL CODE. HX HEAVY ETOH, REPORTS NONE IN 3 YRS. AMMONIA 59, GOAL IS 40. CONTINUE LACTULOSE. GOAL OF 3 STOOLS/DAY. 20G IV IN LUE. BP 106/58, HR 73 BPM. DAILY WEIGHTS ON STANDING SCALE. AMBULATORY WITHOUT ASSISTANCE. PLAN TO TRANSITION TO [facility] TO LIVE WITH SISTER, WHO IS ALSO IN RECOVERY, IN HER TRAILER. MED REC IS DONE, PENDING D/C PACKET. MAY SUGGEST SEEKING PRIOR AUTH WITH NEW PROVIDER FOR RIFAXIMIN RX FOR ADD'L BENEFIT WHEN IN [facility].
[2025-02-05 04:45] LABS: Hemoglobin 12.8 g/dL (13.5-17.5)
[2025-02-05 05:10] LABS: Albumin, Blood 3.1 g/dL (3.4-5.0); Albumin/Globulin Ratio 0.7 (0.8-1.8); Bun/Creatinine Ratio 26.9 (12.0-20.0); Calcium, Blood 8.4 mg/dL (8.5-10.1); Creatinine, Blood 0.82 mg/dL (0.60-1.20); Globulin, Blood 4.3 g/dL (2.2-4.0); Magnesium, Blood 1.9 mg/dL (1.6-2.4); Total Protein, Blood 7.4 g/dL (6.4-8.2)
--- NOTE | 2025-02-05 05:18 | NUR ---
LABS DOWNTRENDING POTASSIUM LAB NOTED. WILL REPORT TO DAY RN.
[2025-02-05 07:38] VITALS: BP 103/56
[2025-02-05] MEDS ORDERED: Potassium Chloride 20 MEQ TabCR PO ONE ×2 (08:00→10:45)
--- NOTE | 2025-02-05 11:30 | NUR ---
PT DISCHARGED TO HOME WITH SISTER. DISCHARGE EDUCATION PROVIDED AND EDUCATED ON AT TIME OF DISCHARGE.
== END 2025-02-05 11:43 | disposition home or self-care (01) | DRG 443 ==
LOC: ER 12:28 → MEDS 12:29
PROVIDERS: Physician Assistant; ADMIT Hospitalist
DX: K76.82 Hepatic encephalopathy (principal); K74.60 Unspecified cirrhosis of liver; F41.9 Anxiety disorder, unspecified; F17.210 Nicotine dependence, cigarettes, uncomplicated; I10 Essential (primary) hypertension; G47.00 Insomnia, unspecified; G89.29 Other chronic pain; B18.2 Chronic viral hepatitis C; F20.9 Schizophrenia, unspecified; Z87.19 Personal history of other diseases of the digestive system; Z79.899 Other long term (current) drug therapy
CPT/HCPCS: 36415; 71046; 80053; 82140; 83735; 84100; 85014; 85018; 85025; 85027; 85610; 93005; 93010; 93306; 96374; 99285-25; A9270; G0378; J1644; J1940